=== PATIENT | female | born 1935 | race African-American/Black ===

== ENCOUNTER 2019-01-05 10:37 | Emergency (ER) | payer MEDICARE, MEDICAID ==
--- NOTE | 2019-01-05 11:27 | RAD ---
Exam: Chest one view HISTORY:Abdominal pain. Dark stools. Comparison: 06/14/2015 FINDINGS: Cardiac silhouette:Cardiomegaly. Aorta: Elongation aorta, unchanged. Pulmonary vessels: Normal Costophrenic angles: Clear LUNGS: No masses or consolidation. Pneumothorax: None Osseous abnormalities: None IMPRESSION: 1. No acute cardiopulmonary process. 2. Elongation of the aorta. Cardiomegaly.
[2019-01-05 11:35] LABS: #Eosinphils 0.1 thou/uL (0.0-0.7); #Lymphocytes 2.1 thou/uL (1.20-3.40); #Monocytes 0.6 thou/uL (0.11-0.59); #Neutrophils 3.5 thou/uL (1.40-6.50); %Basophils 0.2 % (0.0-1.0); %Eosinophils 2.2 % (0.0-10.0); %Lymphocytes 32.4 % (21.0-51.0); %Monocytes 9.1 % (0.0-10.0); %Neutrophils 56.1 % (42.0-75.0); Hemoglobin 7.9 g/dL (12.0-16.0); Mean Corpuscular HGB CONC 32.8 g/dL (32.0-36.0); Mean Corpuscular Hemoglobin 29.9 pg (27.0-31.0); Mean Corpuscular Volume 91.1 fL (78.0-98.0); Mean Platelet Volume 6.7 fL (7.4-10.4); Platelet Count 267 thou/uL (130-400); RBC Distribution Width 12.2 % (11.5-14.5); Red Blood Cell (RBC) Count 2.63 mill/uL (4.20-5.40); White Blood Cell (WBC) Count 6.3 thou/uL (4.8-10.8)
[2019-01-05 12:06] LABS: ALT (SGPT) 17 U/L (8-55); AST (SGOT) 27 U/L (5-34); Alkaline Phosphatase 57 U/L (40-110); Anion Gap 13 mmol/L (10-20); BUN (Urea Nitrogen) 46 mg/dL (9.8-20.1); Bilirubin, Total 0.4 mg/dL (0.2-1.2); Calc. Creatinine Clearance 0 mL/min (70-130); Calcium 9.3 mg/dL (7.8-10.44); Carbon Dioxide 22 mmol/L (23-31); Chloride 108 mmol/L (98-107); Estimated GFR-MDRD 14; Globulin 3.6 g/dL (2.4-3.5); Glucose 113 mg/dL (83-110); Lipase 63 U/L (8-78); Potassium 4.3 mmol/L (3.5-5.1); Protein, Total 7.6 g/dL (6.0-8.3); Sodium 139 mmol/L (136-145)
[2019-01-05 12:46] LABS: Bacteria/HPF 1+ HPF (None Seen); Bilirubin Negative (Negative); Blood, Urine Trace (Negative); Clarity Clear (Clear); Glucose, Urine (Dipstick) Normal (Negative); Leukocyte 25 Leu/uL (Negative); Nitrite Negative (Negative); Protein, Urine (Dipstick) 100 mg/dL (Neg-Trace); RBC/HPF None Seen HPF (0-3); Squamous Epithelial 0-3 HPF (0-3); Urobilinogen Normal mg/dL (Less than 2); WBC/HPF 0-3 HPF (0-3)
--- NOTE | 2019-01-05 13:44 | CT ---
EXAM: Abdomen and pelvic CT scan without contrast: HISTORY: Pain COMPARISON: 01/26/2015 FINDINGS: Volume loss is seen at the lung bases, partially imaged. Liver: Focal hypodensity involves posterior segment, right hepatic lobe, stable appearing. Gallbladder: Unremarkable. Pancreas: Unremarkable Spleen: Unremarkable. Adrenal glands: Unremarkable. Kidneys: No renal calculus or acute obstruction. There are scattered bilateral renal hypodensities , incompletely evaluated by noncontrast technique. Bowel: No evidence for bowel obstruction. Eventration of ventral abdominal wall, near the umbilicus. Urinary Bladder: Lobular morphology of the urinary bladder which could relate to sequela from outlet obstruction or neurogenic bladder. Focal hypodensity of the right adnexa adjacent to the right posterior margin of the uterus, incomplet stu evaluated Free Air: No free air. Ascites: No ascites. Scattered vascular calcification. Osseous structures: No acute osseous abnormalities. IMPRESSION: 1. No urolithiasis or obstructive uropathy. 2. Focal hypodensity of the right adnexa, incompletely assessed although not typical for patient's a ge. Dedicated pelvic ultrasound is recommended to further characterize. 3. Additional details are described above. Transcribed Date/Time: 01/05/2019 1:50 PM
== END 2019-01-05 15:37 | disposition home or self-care (01) ==
LOC: ERS 10:37
DX: R10.9 Unspecified abdominal pain (principal); R10.817 Generalized abdominal tenderness; I12.9 Hypertensive chronic kidney disease with stage 1 through stage 4 chronic kidney disease, or unspecified chronic kidney disease; E11.22 Type 2 diabetes mellitus with diabetic chronic kidney disease; N18.3 Chronic kidney disease, stage 3 (moderate); E78.5 Hyperlipidemia, unspecified; E78.00 Pure hypercholesterolemia, unspecified; M19.90 Unspecified osteoarthritis, unspecified site; F32.9 Major depressive disorder, single episode, unspecified; F41.9 Anxiety disorder, unspecified; Z79.899 Other long term (current) drug therapy; Z79.84 Long term (current) use of oral hypoglycemic drugs; Z79.82 Long term (current) use of aspirin; Z79.891 Long term (current) use of opiate analgesic
CPT/HCPCS: 36415; 71045; 74176; 80053; 81003; 81015; 82274; 83690; 85025; 93005